=== PATIENT | female | born 1945 | race Caucasian/White ===

== ENCOUNTER 2018-03-01 08:50 | Day surgery (SDC) | payer MEDICARE ==
[2018-02-28 11:22] VITALS: BMI 28.7
--- NOTE | 2018-03-01 03:53 | HP ---
SHORT STAY HISTORY AND PHYSICAL DATE OF ADMISSION: 03/01/2018 HISTORY OF PRESENT ILLNESS: Ms. Sofia Laguna is a very pleasant 72-year-old female who comes for co lonoscopy for colon cancer screening. She is high risk for colon cancer because of family history of colon cancer. At the present time, Ms. Laguna has no specific GI symptoms. MEDICAL ILLNESSES: 1. Obesity, status post gastric sleeve surgery in 2012. 2. Hypertension. 3. Chronic acid reflux. 4. Hyperlipidemia. 5. Status post gastric sleeve in 2012. 6. Diverticular disease. ALLERGIES: None. PHYSICAL EXAMINATION: VITAL SIGNS: Pulse is 70, blood pressure 150/70. HEENT: Conjunctivae clear. CARDIOVASCULAR SYSTEM: First and second heart sounds normal. LUNGS: Clear to auscultation. ABDOMEN: Soft to palpate. No organomegaly. No tenderness. No masses. ADMITTING DIAGNOSIS: A 72-year-old female with family history of colon cancer. She comes for colono scopy for colon cancer screening.
--- NOTE | 2018-03-01 13:02 | OP ---
DATE OF PROCEDURE: 03/01/2018 SURGEON: Juan C Carrillo M.D. OPERATIVE PROCEDURE: 1. Colonoscopy with polypectomy. 2. Colonoscopy with 10 Serbian heater probe therapy of polypectomy site. PREOPERATIVE DIAGNOSES: A 72-year-old female with a family history of colon cancer undergo ing colonoscopy. POSTOPERATIVE DIAGNOSES: 1. Large broad based sessile polyp cecum, status post snare cautery. 2. Sessile ascending colon polyp, status post snare cautery. 3. Markedly redundant tortuous colon. PROCEDURE IN DETAIL: The patient was placed on her left lateral position and was given sedation by t Anesthesia Department. A rectal exam was done before the scope was advanced into the rectum. No lesion felt on rectal exam. A Pentax video colonoscope was introduced into the rectum and advanced a ll the way to the cecum. The appendical opening, ileocecal valve, no pathology. There was a broad-b ased sessile polyp seen over the cecal area. The polyp was removed with snare cautery. The polypect kati site did not cauterize well and a 10 Serbian probe was ____ at the polypectomy site cauterized wit h good hemostasis. Another sessile ascending colon polyp removed with snare cautery with good hemost asis. The hepatic flexure, transverse colon, descending colon, and sigmoid colon, rectum, no lesions seen. DISCHARGE PLANNING: This is a 72-year-old female with family history of colon cancer. She came for a colonoscopy and underwent a polypectomy x2. DISCHARGE RECOMMENDATIONS: 1. The patient was advised to call me with abdominal pain or hematochezia. 2. Await colonic biopsy and will plan for a colonoscopy in 3 years.
== END 2018-03-01 12:40 | disposition home or self-care (01) ==
LOC: SDC 08:50
PROVIDERS: ATTEND Internal Medicine Gastroenterology
PROC: 0DBK8ZX Excision of Ascending Colon, Via Natural or Artificial Opening Endoscopic, Diagnostic (ICD-10-PCS; principal; 2018-03-01)
PROC: 0DBH8ZX Excision of Cecum, Via Natural or Artificial Opening Endoscopic, Diagnostic (ICD-10-PCS; 2018-03-01)
DX: Z12.11 Encounter for screening for malignant neoplasm of colon (principal); K63.5 Polyp of colon; Q43.8 Other specified congenital malformations of intestine; K21.9 Gastro-esophageal reflux disease without esophagitis; I10 Essential (primary) hypertension; E66.9 Obesity, unspecified; Z98.84 Bariatric surgery status; Z80.0 Family history of malignant neoplasm of digestive organs; Z98.890 Other specified postprocedural states
CPT/HCPCS: 88305

== ENCOUNTER 2018-03-03 01:02 | Day surgery (SDC) | payer MEDICARE ==
[2018-03-03] MEDS ORDERED: Ondansetron HCl/PF 4 MG/2 ML Vial SLOW IVP PRN (02:35)
[2018-03-03] MEDS: D5 1/2 NS w/20 mEq KCL 1,000 ML IV SCH ×3 (03:01→20:43)
[2018-03-03] MEDS: Piperacillin/Tazobactam 3.375 GM in Sodium Chloride 0.9% 100 ML IVPB SCH ×4 (03:02→20:42)
[2018-03-03] MEDS: metroNIDAZOLE 500 MG in Premix Bag 1 BAG IVPB SCH ×3 (05:16→21:33)
[2018-03-03] MEDS: Morphine 4 MG/ML VIAL SLOW IVP PRN ×2 (05:54→21:37)
[2018-03-03 08:47] VITALS: BMI 28.5
[2018-03-03] MEDS ORDERED: Prevnar 13-Val Conj/PF 0.5 ML SYRINGE IM ONE (09:00)
[2018-03-04] MEDS: D5 1/2 NS w/20 mEq KCL 1,000 ML IV SCH ×2 (00:33→02:25)
[2018-03-04] MEDS: Piperacillin/Tazobactam 3.375 GM in Sodium Chloride 0.9% 100 ML IVPB SCH ×2 (04:08→09:00)
[2018-03-04] MEDS: metroNIDAZOLE 500 MG in Premix Bag 1 BAG IVPB SCH (05:53)
[2018-03-04 07:47] VITALS: BP 106/70; TEMP 99.1
--- NOTE | 2018-03-04 08:20 | HP ---
DATE OF ADMISSION: 03/04/2018 REASON FOR ADMISSION: Abdominal pain. HISTORY OF PRESENT ILLNESS: Ms. Sofia Laguna is a very pleasant 72-year-old female with f amily history of colon cancer. The patient has no specific GI symptoms. She had a colonoscopy and p olypectomy on 03/01/2018. She had a broad-based sessile polyp and cecum removed. She had mild bleed ing after polypectomy and the site was cauterized with heater probe. She also had another colon poly p removed from the ascending colon. The patient did well post procedure and was discharged to home o n Wednesday morning. She did well all of Wednesday until Wednesday morning. She developed severe sharp pain over the periumbilical area and also some pain over the right lower quadrant. She stopped walki ng when she came home. She did eat well. She developed recurrence of abdominal pain around 7:00 las t night. She called me stating she has abdominal pain. I advised Ms. Laguna to go to [facility]. I did contact ER physician and they told her to have abdominal CAT scan to rule out any perforation. The patient went to the ER and had CAT scan late last night around 11:00. The CAT scan is basicall y negative. There is no free air seen. Because of abdominal pain and also guarding as per the ER MD , it was felt patient will be hospitalized. The patient transferred from [facility] to [facility] ing at 01:38. The patient was kept n.p.o. initially and was on IV fluids. She is also on IV Zosyn, Flagyl. Initially, she had a fever of 100.4, but now she is afebrile. She is actually feeling britney r. She has clear-liquid diet. Abdominal pain is mild compared to what it was yesterday. She had a small stool yesterday. She is not passing any flatus today. Because of abdominal pain and also some fever, there is a possibility that patient could have serosal burn syndrome which could sometimes owens ppen after polypectomy and cautery. ALLERGIES: None. MEDICAL ILLNESSES: 1. Hypertension. 2. Hyperlipidemia. 3. Chronic acid reflux. 4. History of obesity and has lost a lot of weight after gastric surgery in 2012. SURGERIES: 1. D and C in 1974. 2. Heel spur removal. 3. Gastric sleeve surgery in 2013. FAMILY HISTORY: Mother, colon cancer. Grandfather, heart disease. MEDICATIONS: Bystolic 10 mg p.o. once a day. REVIEW OF SYSTEMS: Unremarkable. SOCIAL HISTORY: The patient does not smoke or drink alcohol. PHYSICAL EXAMINATION: GENERAL: The patient appears very comfortable. She is in no acute distress. VITAL SIGNS: She is afebrile. Her pulse is 84, blood pressure 110/70. HEENT: Conjunctivae clear. NECK: Supple. No adenitis or thyromegaly noted. CARDIOVASCULAR SYSTEM: First and second heart sounds normal. LUNGS: Clear to auscultation. ABDOMEN: Soft to palpate. Abdomen is nondistended. Abdomen is tender over the right lower quadrant , but no rebound or guarding. Overall, the exam is very benign except for mild tenderness over right upper quadrant. No rebound or guarding. No organomegaly. EXTREMITIES: Reveal no edema. X-RAYS: Abdominal CAT scan done in the [facility] last night . CLINICAL IMPRESSION: Abdominal pain, low-grade fever, mostly represent serosal burn syndrome for mally ypectomy site. PLAN: 1. We will keep patient on clear liquid diet. 2. IV fluids. 3. IV antibiotics. 4. We will reevaluate tomorrow morning and decide which she can be discharged home tomorrow. If she does well, hopefully she can be discharged home tomorrow.
--- NOTE | 2018-03-04 09:40 | DIS ---
DATE OF ADMISSION: 03/03/2018 DATE OF DISCHARGE: 03/04/2018. FINAL DISCHARGE DISPOSITION: The patient will be discharged home. DISCHARGE INSTRUCTIONS: 1. May resume diet as before. 2. Levaquin 500 mg p.o. once a day for the next 5 days. 3. The patient advised not to lift any heavy weights or moving objects for the next one week. 4. The patient will come back to see me in 2 weeks in my office. Ms. Sofia Laguna is a very pleasant, 72-year-old female with family history of colon cance r. She had a colon with polypectomy this past Wednesday on 03/01/2018. She had a very large broad-bas ed polyp from the ascending and cecum. The patient came to the ER on Wednesday evening with severe a bdominal pain. She had an abdominal CAT scan which revealed no free air. I admitted the patient jujose sanabria for IV antibiotics and observation. She was transferred from [facility] to this hospit al on the family resource management specialist of 03/03/2018. She was placed on IV Zosyn and IV Flagyl. Her abdominal pain has markedly improved overnight. She still has mild discomfort, but not as bad as before. There is no nausea or vomiting. She has low grade fever on admission, but she became afebrile. Abdomen was soft and nondistended. She is mildly tender over the right lower quadrant. The patient will be left on a clear liquid diet for several hours. On the morning of 03/04/2018 she had remained afebrile. Her abdominal pain markedly improved. She still has some tenderness over the right lower quadrant, b ut not as bad as before. She had a bowel movement this morning. PHYSICAL EXAMINATION: VITAL SIGNS: Stable. Her BP has been slightly low, around 91/57 but this morning came to 106/70. CARDIOVASCULAR AND LUNGS: Within normal limits. ABDOMEN: Soft and nondistended. Abdomen is mildly tender over the right lower quadrant. There is n o rebound or guarding. DISCHARGE MEDICATIONS: The patient is being discharged on Levaquin 500 mg p.o. once a day for next 5 days. The patient was advised to call me sooner if she develops any abdominal pain, worsening abdominal jeronimo n or any fever or hematochezia. In the absence of any above symptoms she is to come back to me in 2 weeks. FINAL DISCHARGE DIAGNOSES: 1. Status post polypectomy, possible serosal burn syndrome. 2. Hypertension. 3. Colon polyp. No family history of colon cancer.
== END 2018-03-04 10:25 | disposition home or self-care (01) ==
LOC: SDC/OP 01:02 → SURG A 01:02 → UNDOADMOB 01:02 → SURG A 01:02 → EDSTATUS 11:59 → SDC/OP 03-04 10:25 → UNDODISOB 03-04 10:25
PROVIDERS: ATTEND Internal Medicine Gastroenterology
DX: R10.33 Periumbilical pain (principal); I10 Essential (primary) hypertension; E78.5 Hyperlipidemia, unspecified; K21.9 Gastro-esophageal reflux disease without esophagitis; Z86.010 Personal history of colon polyps; Z79.83 Long term (current) use of bisphosphonates; Z79.899 Other long term (current) drug therapy; Z98.84 Bariatric surgery status; Z98.890 Other specified postprocedural states
CPT/HCPCS: A4216; J2270; J2543; J7050

== ENCOUNTER 2018-09-19 10:20 | Outpatient (CLI) | payer MEDICARE ==
--- NOTE | 2018-09-19 12:39 | BD ---
BONE DENSITOMETRY USING DEXA: HISTORY: Postmenopausal screening for osteoporosis. FINDINGS: Lumbar Spine: BMD (g/cm2) L1 0.819 T-Score: -1.6 Z-Score: 0.5 L2 0.944 T-Score: -0.8 Z-Score: 1.5 L3 0.937 T-Score: -1.3 Z-Score: 1.1 L4 1.018 T-Score: -0.4 Z-Score: 2.1 L1-L4 0.932 T-Score: -1.0 Z-Score: 1.3 Femoral Neck: 0.707 T-Score: -1.3 Z-Score: 0.7 Total Femur: 0.926 T-Score: -0.1 Z-Score: 1.6 There has been interval improvement of 5.6% in the BMD of the lumbar spine and an improvement of 5.7% in the BMD of the proximal femur since 01/08/2016. Impression: Osteopenia. POS: [facility]
== END 2018-09-19 10:21 | disposition home or self-care (01) ==
LOC: BICMAMMO 10:20
PROVIDERS: ATTEND Internal Medicine
DX: Z12.31 Encounter for screening mammogram for malignant neoplasm of breast (principal); Z13.820 Encounter for screening for osteoporosis; M85.89 Other specified disorders of bone density and structure, multiple sites
CPT/HCPCS: 77063; 77067; 77080